=== PATIENT | male | born 1955 | race Caucasian/White ===

== ENCOUNTER → 2017-03-06 | Outpatient (CLI) | payer BC ==
[2017-03-06 13:16] LABS: ALT/SGPT 29 U/L (12-78); AST/SGOT 16 U/L (15-37); BLOOD UREA NITROGEN 27 mg/dl (7-18); BUN/CREATININE RATIO 22.1 (10-20); CALCIUM 8.9 mg/dl (8.5-10.1); CARBON DIOXIDE 27 mmol/L (21-32); CHLORIDE 108 mmol/L (98-107); CHOLESTEROL 144 mg/dl (0-200); GLUCOSE 89 mg/dl (70-99); SODIUM 143 mmol/L (136-145); TRIGLYCERIDES 84 mg/dl (0-150); VERY LOW DENSITY LIPOPROT CALC 17 mg/dl
[2017-03-06 13:27] LABS: ALB/GLOB RATIO 1.2 (0.9-2); ALKALINE PHOSPHATASE 148 U/L (45-117); CHOLESTEROL/HDL RATIO 2.4; HDL CHOLESTEROL 59 mg/dl; LDL CHOLESTEROL CALCULATED 68 mg/dl
== END | disposition home or self-care (01) ==
LOC: C.LABPVFM 07:06
PROVIDERS: ATTEND Family Medicine
DX: E78.2 Mixed hyperlipidemia (principal); E80.4 Gilbert syndrome; N52.9 Male erectile dysfunction, unspecified

== ENCOUNTER → 2017-08-31 | Outpatient (CLI) | payer BC ==
[2017-08-31 13:26] LABS: ALT/SGPT 24 U/L (12-78); AST/SGOT 14 U/L (15-37); BLOOD UREA NITROGEN 22 mg/dl (7-18); BUN/CREATININE RATIO 18.1 (10-20); CALCIUM 8.8 mg/dl (8.5-10.1); CARBON DIOXIDE 28 mmol/L (21-32); CHLORIDE 106 mmol/L (98-107); CREATININE 1.22 mg/dl (0.60-1.40); GLUCOSE 89 mg/dl (70-99); POTASSIUM 4.1 mmol/L (3.5-5.1); SODIUM 137 mmol/L (136-145)
[2017-08-31 13:29] LABS: ALB/GLOB RATIO 1.2 (0.9-2); ALKALINE PHOSPHATASE 170 U/L (45-117); CHOLESTEROL 125 mg/dl (0-200); HDL CHOLESTEROL 64 mg/dl; LDL CHOLESTEROL CALCULATED 44 mg/dl; TRIGLYCERIDES 87 mg/dl (0-150); VERY LOW DENSITY LIPOPROT CALC 17 mg/dl
== END | disposition home or self-care (01) ==
LOC: C.LABPVFM 08:12
PROVIDERS: ATTEND Family Medicine
DX: E78.2 Mixed hyperlipidemia (principal); E80.4 Gilbert syndrome; Z23 Encounter for immunization; I10 Essential (primary) hypertension; N52.9 Male erectile dysfunction, unspecified

== ENCOUNTER 2025-07-18 05:20 | Observation (INO) ==
--- NOTE | 2025-06-21 11:02 | PAT Medication Instructions ---
Medication Instructions Date of Service June 21, 2025 Home Medications metronidazole 0.75 % topical cream 1 appln topical UD PRN Skin Irritation multivitamin-ferrous fumarate-folic acid 18 mg-400 mcg tablet (Centrum) 1 tab PO QAM amlodipine 5 mg tablet 5 mg PO QAM atorvastatin 10 mg tablet 10 mg PO QAM minocycline 50 mg capsule 50 mg PO UD PRN rosacea rivaroxaban 20 mg tablet (Xarelto) 20 mg PO QAM sildenafil 100 mg tablet 100 mg PO UD PRN Sexual Activity metoprolol succinate 25 mg tablet,extended release 24 hr 25 mg PO QAM omega-3 fatty acids 1,000 mg PO QAM Continue as directed minocycline 50 mg capsule 50 mg PO UD PRN rosacea (if needed) ASK your prescriber and surgeon rivaroxaban/Xarelto 20 mg tablet (Xarelto) 20 mg PO QAM (From anesthesia perspective, rivaroxaban/Xarelto is requested to be stopped 3 days before surgery. Please check if okay with doctor that prescribes this to you) STOP taking 2 weeks before surgery (or as soon as possible if surgery is within 2 weeks) omega-3 fatty acids 1,000 mg PO QAM STOP taking 24 hours before surgery metronidazole 0.75 % topical cream 1 appln topical UD PRN Skin Irritation DO NOT take the morning of surgery multivitamin-ferrous fumarate-folic acid 18 mg-400 mcg tablet (Centrum) 1 tab PO QAM sildenafil 100 mg tablet 100 mg PO UD PRN Sexual Activity Take morning of surgery With a small sip of water, OTHERWISE NOTHING TO EAT OR DRINK AFTER MIDNIGHT: amlodipine 5 mg tablet 5 mg PO QAM atorvastatin 10 mg tablet 10 mg PO QAM metoprolol succinate 25 mg tablet,extended release 24 hr 25 mg PO QAM Other Notes If you have any questions please call us at [phone] or [phone] or [phone] or [phone]
--- NOTE | 2025-06-26 10:47 | Anesthesiology Consultation ---
Date of Service June 26, 2025 Assessment & Plan (1) Encounter for pre-operative examination: Chart Review Chart Review: Acceptable Risk for Surgery (pending updated ECHO results and any additional cardio recommendations if needed ) and Patient seen in Pre Admission Testing - Awaiting cardio ordered ECHO scheduled at [facility] 06/29/25 - Check coags AM DOS - Patient is NOT an ideal OPJ candidate (currently 23 hour obs) Per PAT appt on 06/26/25, no recent illness/disease exposures, illness related symptoms, or recent illness/disease positive tests. Will leave to surgeon's discretion if preop Covid testing needed Per [facility] cardiology phone note 06/26/25= "... Refer for preoperative resting ECHO. Okay to hold anticoagulation (Rivaroxaban/Xarelto) x 72 hours if needed. Standard pacemaker defibrillator precautions. DesignWine device. Interrogation on Jun 02, 2025 demonstrated 7.7 years remaining longevity. Time in AT/AF: 2.5%. Lower rate set at 45bpm... " (Patient made aware 06/27/25 via phone he can hold Xarelto 72 hours prior to surgery in order to be a candidate for SAB) Cardiology office visit 05/08/25= "Presents for preop cardiac evaluation. Also follows with hypertrophic cardiomyopathy clinic in [place].... Feeling well with no cardiovascular complaints... Scheduled for left partial knee replacement on 07/18/2025... Asymptomatic and euvolemic on exam... Normal functional capacity... EKG done today 05/08/2025stable and unchanged from prior EKG... In terms of preop risk assessment, per Tomasz criteria, patient was counseled that he would be placed at a low risk for any adverse perioperative cardiovascular events associated with a left partial knee replacement surgery. Patient is on a good medication regimen and no other cardiac testing or interventions would further lower that risk... Okay to hold Xarelto 48 hours prior to procedure. Should resume when hemodynamically stable... Apical variant hypertrophic c ardiomyopathyICD in placedoing well from cardiac standpoint... Paroxysmal atrial fibrillationoccasional palpitations... HypertensionBP controlled... Dyslipidemia..." Teaching & Discussion Pre-Anesthesia Teaching/Discussion Notes: Instructed NPO after midnight before surgery,except medications with 15 cc of water. Medication instructions pro vided according to the PAT guidelines. History Surgery Operation Date: 07/18/25 08:50 Proposed Procedures p Left Unicompartmental Knee Arthroplasty versus - Jonathan Perdomo MD s Left Total Knee Arthroplasty - Jonathan Perdomo MD Height/Weight Height: 5 ft 9 in Weight: 96.8 kg Allergies Allergy/AdvReac Type Severity Reaction Status Date / Time No Known Allergies Allergy Verified 06/26/25 08:52 Medications Home Medications Medication Instructions Recorded Confirmed Last Taken metronidazole 0.75 % topical cream 1 appln topical UD PRN Skin 03/26/19 06/26/25 11/19/23 Irritation #1 g multivitamin-ferrous 1 tab PO QAM 03/26/19 06/26/25 11/22/23 fumarate-folic acid 18 mg-400 mcg tablet (Centrum) amlodipine 5 mg tablet 5 mg PO QAM 11/16/23 06/26/25 11/25/23 08:00 atorvastatin 10 mg tablet 10 mg PO QAM 11/16/23 06/26/25 11/25/23 08:00 minocycline 50 mg capsule 50 mg PO UD PRN rosacea 11/16/23 06/26/25 11/12/23 rivaroxaban 20 mg tablet (Xarelto) 20 mg PO QAM 11/16/23 06/26/25 11/22/23 sildenafil 100 mg tablet 100 mg PO UD PRN Sexual Activity 11/16/23 06/26/25 Unknown metoprolol succinate 25 mg 25 mg PO QAM 10/05/24 06/26/25 Unknown tablet,extended release 24 hr omega-3 fatty acids 1,000 mg PO QAM 06/21/25 06/26/25 Unknown Past Medical History Medical History Erectile dysfunction [place] syndrome - no jaundice History of COVID-19 hx + test, approx 2019- no residual symptoms HTN (hypertension) Hyperlipidemia Hypertrophic cardiomyopathy "Apical variant hypertrophic cardiomyopathy" f/u dr. 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 Pacemaker Paroxysmal A-fib - per cardio records - on Xarelitalo Rosacea Exercise / Class Metabolic Activity II 4-5 Yardwork/Stairs/Walk up hill (one flight of stairs - no chest pain or SOB ) Past Family History Family History Mother Coronary heart disease Heart disease Father Hypertension Sister Hyperlipidemia Other No family history of adverse response to anesthesia Denies family history of Ovarian cancer Prostate cancer Myocardial infarction Breast cancer Colorectal cancer Past Surgical History Surgical History History of hernia surgery History of pacemaker (09/2020) medtronic History of tonsillectomy and adenoidectomy Hx of adenoidectomy hx 1 sx for t&a Hx of appendectomy Hx of colonoscopy [place] teeth removed Past Anesthesia History No Hx of Anesthesia Complications and No Family Hx of Anesthesia Complications History of PONV No Hx of PONV and No Hx of Motion Sickness Social History Smoking Status: Never smoker Do You Dip or Chew Tobacco: No Hx Alcohol Use: Yes Alcohol type: wine alcohol intake frequency: holidays/special occasions only Hx Substance Use: No substance use type: does not use Review of Systems Patient denies recent chest pain, shortness of breath, dyspnea on exertion, reflux, cough, wheezing, palpitations. No hx of seizures, stroke, SD, apnea/snoring. No hx of blood clots or blood transfusions Physical Exam Vital Signs VITALS BP 133/82 P 55 TEMP 97.6 SP02 96% RESP 16 Constitutional no acute distress ENMT Mouth: no TMJ clicking Thyromental Distance: < 3.5 Finger Breadths (3.0) Mallampati Class: II Neck neck extension not limited Respiratory normal respiratory effort; no respiratory distress Auscultation: lungs clear to auscultation bilaterally; no wheezes Cardiovascular Rate/Rhythm: regular rate and regular rhythm Heart Sounds: no murmur Vessels: no carotid bruit Musculoskeletal Spine: no pain with cervical ROM Extremities: extremities normal to inspection Psychiatric Orientation: alert Lab Results Anesthesia Preop Results Results Anesthesia Widget: WBC 6.70 K/ul (4.8-10.8) 06/26/25 Hgb 15.6 g/dl (14.0-18.0) 06/26/25 Hct 46.5 % (42.0-52.0) 06/26/25 Plt 255 K/uL (130-400) 06/26/25 Na 137 mmol/L (136-145) 06/26/25 K 4.2 mmol/L (3.5-5.1) 06/26/25 Cl 104 mmol/L (98-107) 06/26/25 CO2 27 mmol/L (21-32) 06/26/25 BUN 23 mg/dl (6-23) 06/26/25 Creat 1.09 mg/dl (0.6-1.4) 06/26/25 Glucose Level 92 mg/dl (70-99(Fasting)) 06/26/25 PT 13.6 Seconds (9.0-12.0) H 06/26/25 PTT 37 Seconds (21-31) H 06/26/25 INR 1.3 (0.9-1.1) H 06/26/25 Blood Type A Positive 06/26/25 Antibody Screen NEGATIVE 06/26/25 Testing Laboratory Results Elevated coags- on Xarelto- will be holding Xarelto 3 days prior to surgery - will recheck DOS 06/26/25= TOTAL BILI: 1.2 (H) (stable from previous) AST: 22 ALT: 24 ALK PHOS: 121 Electrocardiogram Date: 06/26/25 Findings: + SB @ (50bpm) Left axis deviation LVH with QRS widening (R in aVL, [place] product) T wave abnormality, consider anterolateral ischemia (Per review of [facility] EKGs/discussion with Dr Quijano- T wave abnormality has been present in lateral leads since at least 09/02/22; patient getting preop ECHO per cardio recommendations due to HOCM history- can proceed pending updated ECHO results review) Chest X-Ray Date: 06/26/25 FINDINGS: Left cardiac pacemaker is present. Heart size and pulmonary vasculature are normal. No consolidation or pleural effusion Stress Test Date: 02/02/23 Type: exercise (ECHO) Resting EF: 60 to 64% Resting LV Function: normal Reason for study: Hypertrophic cardiomyopathy This is a symptom limited study for evaluation of LVOT obstruction and HCM. Induced ischemia evaluation was not performed. Exercise capacity is average Hypertrophic cardiomyopathy stress echocardiogram shows no intracavitary/LVOT obstruction Other Testing Pacemaker/ICD check 12/05/24-03/05/25= Medtronic device. Implant date 10/11/2020. Battery life 8.08 years. Not pacer dependent. A pacing 25.76%. RV packing 0.31%. AT/AF burden 0.06%. Mode AAIR <--> DDDR. No shocks delivered. Cardiac MRI 06/26/20= Interpretation Summary 1.Cardiac MRI findings of apical left ventricular hypertrophy with maximal thickness of 22 mm at distal septum. Atypical intermediate enhancement noted in apex and diffuse enhancement of distal left ventricular segments on late gadolinium enhanced imaging. Findings are consistent with apical hypertrophic cardiomyopathy.Total scar as percent of total LV mass: 26% 2.The left ventricular cavity size is normal. The asymmetric hypertrophy involves the apex. The left ventricular systolic function is normal. The calculated LV ejection fraction is 55%. 3.The right ventricle is normal in size. The right ventricular systolic function is normal. The calculated RV ejection fraction is 52%. 4.There is no myocardial infarction noted on late gadolinium enhanced imaging. All the myocardial segments are viable.
[2025-07-18] MEDS: LR 500ML BOLUS, THEN 15ML/HR IV SCH (06:06)
[2025-07-18] MEDS: ACETAMINOPHEN 500 MG TAB PO SCH ×2 (06:07→13:13)
[2025-07-18] MEDS: METOCLOPRAMIDE HCL 10 MG TABLET PO SCH (06:07)
[2025-07-18] MEDS: LR 60ML/HR IV SCH (06:07)
[2025-07-18] MEDS: CeleBREX 200 MG CAP PO SCH (06:07)
[2025-07-18] MEDS: FAMOTIDINE 20 MG TAB PO SCH (06:08)
[2025-07-18] MEDS ORDERED: ROPIVACAINE 0.5% 5 MG/ML 30 ML VIAL ONE (06:30)
[2025-07-18] MEDS ORDERED: BUPIVACAINE 0.5 % 5 MG/1 ML PF 10ML VIAL ONE (06:30)
[2025-07-18] MEDS ORDERED: PROPOFOL IV EMULSION 10 MG/ML 20 ML VIAL IV ONE ×2 (06:33→08:21)
[2025-07-18] MEDS ORDERED: DexMEDEtomidine HCL IV 100 MCG/ML VIAL IV ONE (06:33)
[2025-07-18] MEDS ORDERED: LIDOCAINE 2% 2 ML VIAL/AMP(20MG/ML) INFIL ONE (06:33)
[2025-07-18] MEDS ORDERED: MIDAZOLAM HCL 1 MG/ML 2ML VIAL ONE (06:34)
[2025-07-18 06:39] LABS: INR 1.0 (0.9-1.1); Partial Thromboplastin Time 27 Seconds (21-31); Prothrombin Time 10.9 Seconds (9.0-12.0)
--- NOTE | 2025-07-18 06:43 | History & Physical Bridge Note ---
Date of Service July 18, 2025 History & Physical Bridge Note I have examined the patient, reviewed the History & Physical and in the interval since the performance of the History & Physical I have noted the following changes of clinical significance: no changes noted
[2025-07-18] MEDS ORDERED: BUPIVACAINE/EPINEPHRINE 0.25% 1:200,000 30 ML VIAL ONE (07:05)
[2025-07-18] MEDS ORDERED: PROMETHAZINE HCL 6.25 MG in SODIUM CHLORIDE 0.9% 50 ML IV PRN (07:08)
[2025-07-18] MEDS ORDERED: ONDANSETRON INJ 2 MG/ML 2 ML VIAL IV PRN ×2 (07:08→10:08)
[2025-07-18] MEDS ORDERED: ATROPINE SULFATE 0.1 MG/ML 10ML SYR IV PRN (07:08)
[2025-07-18] MEDS: ROPIV 0.5% 246mg, Ketorolac 30mg, EPINEPHrine 0.5mg in NSS INFIL SCH (07:48)
[2025-07-18] MEDS: ORTHO JOINT ANESTHETIC ONE (07:49)
--- NOTE | 2025-07-18 08:54 | Operative Report ---
PG Post Operative Report Pre & Post Diagnosis Operation Date: 07/18/25 07:00 Pre-Op Diagnosis: Arthritis Knee Left Post-Op Diagnosis: Arthritis Knee Left I identified the patient and participated in the time-out.: Yes Procedure Operation Date: 07/18/25 07:00 Actual Procedures p Left uncemented Independence unicompartmental Knee Arthroplasty(Left) - Jonathan garcia MD Surgeon Jonathan Perdomo MD Game Programmer Vinicius Hernandez PA-C Estimated Blood Loss 25 Findings Consistent with Post-Op Diagnosis Operative findings reveal advanced left knee medial compartment arthritis. He had what appeared to be some a vast necrosis of the medial femoral condyle. He had the typical anteromedial cartilage wear of the tibia. His ACL was intact. The patellofemoral and lateral compartments were quite pristine. Moderate-sized joint effusion. Specimens Left knee sent for pathology. Anesthesia Type Spinal MAC Complications none Disposition Accompanied Patient To Recovery: No Indications The patient is a 70-year-old gentleman whose had a several year history of increasing left medial knee pain discomfort described to gotten worse over time. He failed all conservative measures. X-rays show progressive medial compartment arthritis. He elected proceed with left partial knee replacement. Description of Procedure Operative implants consist of: 1. Biomet Independence medium uncemented medial femoral component. 2. Biomet Independence left medial size C tibial tray-uncemented. 3. 5 mm mobile-bearing polyethylene insert. The patient was taken to the op room, identified, and placed on the operating table in the supine position. All contact areas were appropriately padded. IV antibiotics were provided by anesthesia team. A spinal anesthetic and adductor canal block had been provided in the holding area. A left phytate was then placed. The left lower extremity was then prepped and draped in usual sterile fashion. The left leg was elevated and exsanguinated with use of an Esmarch and a tour was placed at 300 mmHg. An anterior approach to the left knee was then performed to a longitudinal incision beginning at the superior pole of the patella and extending just medial to the tibial tubercle. Sharp dissection was Through subcutaneous tissues down the extensor mechanism. He did have significant prepatellar bursitis. A medial parapatellar arthrotomy incision was made extending up into the VMO. Some slight subperiosteal dissection was carried out medially taking great care to protect the MCL. The fat pad was retracted beneath the patella tendon. I then examined the lateral and patellofemoral compartments they were well-preserved. We elected proceed with a partial knee replacement. An osteotome was used to remove some small osteophytes in the intercondylar eminence area. The femur was sized to a size medium. The medium spoon was placed. The tibial guide was then attached to the medium spoon with a 4G clamp. It was pinned in place. The transverse cut followed by the vertical cut was then made. The tibia sized to a size C. We could put the 4 feeler gauge and cover quite well and we elected proceed with this. Attention then drawn the femur. The distal femur was entered with a sharp drill. I then widen the hole and placed the IM alexandra. The medium femoral template was then placed set at 4. It was attached to the IM alexandra. The holes were drilled for the femoral component. The posterior cutting guide was placed and the posterior cut was made. The medial meniscus remnant was removed. We then used a 0 spigot middle to distal femur. I then trialed the knee. At this point the 4 feeler gauge fit well in flexion and maybe a little bit loose and the 5 that was felt more appropriate. We brought the knee in extension and the 4 feeler gauge felt pretty good in extension. He did have some loss of the medial femoral condyle. We then used the 1 spigot and milled the distal femur again. We then trialed the knee and the 5 feeler gauge fit appropriately. We elect to place these implants. The distal femoral preparation device was placed. The anterior femur was milled and the posterior osteophyte was removed. We then pinned the tibial tray in place. We then used the a toothbrush blade to cut for the keel. We very carefully widen this out so the trial would fit in easily. We then trialed the knee and the 5 implant fit appropriately. We elected place these implants. All trial implants were removed. I irrigated the wound with some Betadine followed by some pulse lavage. A left medial size C tibial tray was then tapped into place followed by a medium femoral component. We then trialed the knee 1 more time and the 5 insert fit appropriately. The permanent 5 implant was placed. I then injected locally with 100 cc of Ortho mix. We then irrigated again. The tourniquet was then let down for final tourniquet time 59 minutes. Hemostasis surges electrocautery. The extensor [place] then closed with a #1 Vicryl suture in a [id number] fashion. Extensor Meclomen checked found to be intact. Subcutaneous tissue then closed with 2 Dexon suture in a buried interrupted fashion skin was closed skin rufina. Leg was then cleaned and dried and a sterile dressing with Xeroform, 4 fours, sterile cast padding and Jesús bandage were applied. The patient then transferred to the recovery room in stable condition. Patient tolerated the procedure well and there are no complications. Vinicius Hernandez, my physician administrative assistant receptionist, was present for the entire procedure. His assistance was essential and required for appropriate patient positioning, prepping and draping, surgical exposure, performing the technical details of the operation, placement the implants, closure of the wound, and placement of the sterile bandage. I attest to the content of the Intraoperative Record and any orders documented therein. Any exceptions are noted below.
--- NOTE | 2025-07-18 09:13 | XRay Report ---
XR knee LT 1 or 2V routine CLINICAL HISTORY: Surgical Post Op COMPARISON: None FINDINGS: Medial left hemiprosthesis shows no hardware complication. There is expected soft tissue g as. Skin rufina are present. IMPRESSION: Unremarkable postoperative exam. ACT 112: Negative or not required by law. Electronically signed by: Pawan Catherine M.D. 07/18/2025 9:11 AM
--- NOTE | 2025-07-18 09:46 | Anesthesiology Progress Note ---
Date of Service July 18, 2025 Anesthesia Post Procedure Vital Signs Vital Signs: Temp Pulse Resp BP BP Pulse Ox O2 Del Method 07/18/25 09:35 36.4 C L 62 12 100/59 L 96 Room Air 07/18/25 09:25 50 L 12 102/58 L 97 Oxymask 07/18/25 09:15 55 L 12 100/55 L 98 Oxymask 07/18/25 09:05 52 L 12 101/55 L 98 Oxymask 07/18/25 08:55 52 L 12 110/55 L 98 Oxymask 07/18/25 08:48 36.1 C L 56 L 16 112/59 L 96 Oxymask 07/18/25 05:27 36.7 C 55 L 20 135/90 96 Room Air O2 Flow Rate 07/18/25 09:35 07/18/25 09:25 4 07/18/25 09:15 4 07/18/25 09:05 4 07/18/25 08:55 4 07/18/25 08:48 4 07/18/25 05:27 Transfer of Care Handoff Completed per policy Notes Mental Status: alert / awake / arousable Patient Amnestic to Procedure: Yes Nausea / Vomiting: adequately controlled Pain: adequately controlled Airway Patency, RR, SpO2: stable & adequate BP & HR: stable & adequate Hydration State: stable & adequate Neuraxial Anesthesia: was administered and sensory block is resolving Anesthetic Complications: no major complications apparent and Pt Satisfied with anesthetic care
[2025-07-18] MEDS ORDERED: SENNA 8.6 MG TAB PO SCH (10:08)
[2025-07-18] MEDS ORDERED: METOCLOPRAMIDE HCL INJ 5 MG/ML 2 ML VIAL IV PRN (10:08)
[2025-07-18] MEDS ORDERED: NALOXONE HCL 0.4 MG/1 ML VIAL/CARP IV PRN (10:08)
[2025-07-18] MEDS ORDERED: MAGNESIUM HYDROXIDE SUSP 30 ML UDC PO PRN (10:08)
[2025-07-18] MEDS ORDERED: HYDROmorphone INJ 0.5 MG/0.5 ML SYR IV PRN (10:08)
[2025-07-18] MEDS ORDERED: ALUMINUM/MAGNESIUM SUSP 30 ML UDC PO PRN (10:08)
[2025-07-18] MEDS ORDERED: MULTIVITAMIN TAB PO SCH (10:30)
[2025-07-18 10:39] VITALS: RESP 16
[2025-07-18] MEDS: OMEGA-3 (PURIFIED FISH OIL) 1 GM CAP PO SCH (11:55)
[2025-07-18] MEDS: DOCUSATE SODIUM 100 MG CAP PO SCH (11:55)
[2025-07-18] MEDS: KETOROLAC TROMETHAMINE 15 MG/ML VIAL IV SCH (11:55)
[2025-07-18] MEDS: TAMSULOSIN HCL 0.4 MG CAP PO SCH (11:55)
[2025-07-18] MEDS: SODIUM CHLORIDE 0.9% 1,000 ML IV SCH (12:01)
[2025-07-18] MEDS: TRANEXAMIC ACID / 0.7% NACL 1,000 MG/100 ML BAG IV SCH (17:47)
[2025-07-18] MEDS: ASCORBIC ACID 500 MG TAB PO SCH (17:48)
[2025-07-18] MEDS: SENNA 8.6 MG TAB PO SCH (20:53)
[2025-07-19 05:24] VITALS: TEMP 97.9; O2SAT 97
[2025-07-19] MEDS: METOPROLOL SUCC 25MG EXT REL TAB PO SCH (07:08)
[2025-07-19] MEDS: dexAMETHasone 10 MG in SYRINGE 0 ML IV SCH (07:11)
[2025-07-19] MEDS: CEROVITE ADV FORMULA TAB PO SCH (07:14)
[2025-07-19] MEDS: RIVAROXABAN 10 MG TABLET PO SCH (07:15)
[2025-07-19] MEDS: ATORVASTATIN 10 MG TAB PO SCH (07:15)
[2025-07-19 07:55] LABS: Hematocrit (blood only) 38.2 % (42.0-52.0); Hemoglobin 13.2 g/dl (14.0-18.0); Mean Corpuscular Hemoglobin 29.8 pg (25.0-34.0); Mean Corpuscular Volume 86.2 fL (80.0-100.0); Platelet Count 205 K/uL (130-400); RDW Standard Deviation 39.3 fL (36.4-46.3); Red Blood Count 4.43 M/uL (4.70-6.10); White Blood Count 17.77 K/ul (4.8-10.8)
[2025-07-19 08:13] LABS: Anion Gap 7.0 (3-11); Blood Urea Nitrogen 23.0 mg/dl (6-23); Calcium 9.1 mg/dl (8.6-10.3); Carbon Dioxide 24.0 mmol/L (21-32); Chloride 109.0 mmol/L (98-107); Creatinine Clr Calc Pharmacy 72.7 ml/min; Glucose 113.0 mg/dl (70-99(Fasting)); Potassium 4.4 mmol/L (3.5-5.1); Sodium 140.0 mmol/L (136-145)
[2025-07-19 08:22] VITALS: BP 134/76; PULSE 76
--- NOTE | 2025-07-19 09:01 | Orthopedic Progress Note ---
Date of Service July 19, 2025 Assessment & Plan (1) Status post unicompartmental knee replacement, left: * Continue Current Treatment * Disposition: Home * Daily treatment: Physical Therapy/ Occupational Therapy per protocol * Weight bearing status: WBAT * Continue to monitor for ABLA * Pain control * DVT prophylaxis, resume Xarelto * Office/hospital f/u 2 weeks for progress check and staple/suture removal * Plan for discharge today pending PT/OT clearance Subjective . Active Problems: S/p left uni knee arthroplasty POD 1 70 y/o male s/p left uni knee arthroplasty. Doing well overall, pain managed and improved function. Denies fever/chills, chest pain/SOB, nausea/vomiting. Otherwise no complaints. Review of Systems All systems reviewed & are unremarkable except as noted in HPI & below. Physical Exam * General: Alert and oriented, no acute distress * Constitutional: well-developed, well-nourished. * Respiratory: Normal respiratory effort, no distress * Gastrointestinal: No tenderness to palpation, no rigidity or guarding. * Skin: No rash or lesion. * Neurologic: Grossly normal * Musculoskeletal: Left knee surgical dressing CDI, not removed for exam. Otherwise no obvious deformity or overlying skin changes RLE. Diffuse TTP distal thigh and knee region. Otherwise no specific tenderness of proximal thigh, lower leg, foot/ankle. AROM knee flexion 100 degrees. AROM foot/ankle intact. Sensation intact plantar/dorsal foot. Brisk capillary refill. Results & Data Results & Data Laboratory Results . Diagnostic Findings . Knee X-Ray 07/18/25 08:46 XR knee LT 1 or 2V routine CLINICAL HISTORY: Surgical Post Op COMPARISON: None FINDINGS: Medial left hemiprosthesis shows no hardware complication. There is expected soft tissue gas. Skin rufina are present. IMPRESSION: Unremarkable postoperative exam. ACT 112: Negative or not required by law. Electronically signed by: Pawan Catherine M.D. 07/18/2025 9:11 AM PG Care Time/CCT Total # of Minutes Spent Total Time Spent with Patient: Total time spent is greater than 50% in coordination of care (as documented) at patient's floor/unit and/or counseling patient: Coding Level of Care Code 83201 Post Operative Follow-Up Diagnoses Status post unicompartmental knee replacement, left Z96.652
== END 2025-07-19 10:19 | disposition home health service (06) ==
LOC: ASU 05:20 → 3E 05:20